=== PATIENT | male | born 1955 | race Two or more races ===

== ENCOUNTER 2018-03-12 12:00 | Inpatient (IN) | payer SELFPAY ==
[~2018-03-12] VITALS: Ht 172.7 cm; Wt 94.5 kg
--- NOTE | 2018-03-12 13:54 | NUR ---
DR. ALVAREZ, ER MD, AT THE BEDSIDE FOR PATIENT EVALUATION. PATIENT RECEIVED AWAKE AND ALERT, AMBULATED FROM THE MAIN TRIAGE TO ROOM OB.
[2018-03-12 14:25] LABS: PLATELET COUNT 305 x10^3mcL (130-400)
--- NOTE | 2018-03-12 14:32 | NUR ---
PORTABEL XRAY AT BEDSIDE
[2018-03-12 14:47] LABS: BILIRUBIN TOTAL 0.2 mg/dL (0.20-1.00); CALCIUM 8.4 mg/dL (8.5-10.1); CARBON DIOXIDE 21.1 mmol/L (21-32); MAGNESIUM 2.2 mg/dL (1.8-2.4); POTASSIUM SERUM 4.3 mmol/L (3.5-5.1); TOTAL PROTEIN, SERUM 7.7 g/dL (6.4-8.2)
--- NOTE | 2018-03-12 14:47 | NUR ---
ZOSYN STARTED BY JET SKINNER. PATIENT HAS BEEN UPDATED REGARDING HIS PLAN OF CARE.
--- NOTE | 2018-03-12 14:49 | NUR ---
CRITICAL LAB- [id number], CR-5.3. DR. ALVAREZ NOTIFIED.
[2018-03-12 14:50] LABS: ALBUMIN 2.2 g/dL (3.4-5.0); CREATININE SERUM 5.3 mg/dL (0.7-1.3)
[2018-03-12 15:06] LABS: ERYTHROCYTE SED RATE 95 mm/hr (0-20)
[2018-03-12 15:09] LABS: BAND NEUTROPHIL 4 % (0-10); METAMYELOCTE 1 % (0-2); MONOCYTE 7 % (0-7); MYELOCYTE 1 % (0-2); SEGMENTED NEUTROPHILS 79 % (37-75)
[2018-03-12 15:11] LABS: PLATELET MORPHOLOGY PLATELETS NORMAL; rbc morphology (normal/abnorm) NORMAL (NORMAL)
[2018-03-12 15:39] LABS: C REACTIVE PROTEIN 24.9 mg/dL (<=0.9)
[2018-03-12 15:43] LABS: PHOSPHOROUS 5.6 mg/dL (2.5-4.9)
[2018-03-12 15:45] LABS: CHOLESTEROL/HDL RATIO 7.8
--- NOTE | 2018-03-12 16:12 | NUR ---
[id number] post 1L of NS
--- NOTE | 2018-03-12 16:48 | NUR ---
ATTEMPTED TO GIVE AN ADMISSION REPORT. PER RIMMA, RN SHE WILL CALL BACK IN 10 MINUTES.
[2018-03-12 17:00] LABS: UA SPECIFIC GRAVITY 1.025 (1.005-1.035); microscopic required? YES; urine erythrocyte TRACE (NEGATIVE)
--- NOTE | 2018-03-12 17:37 | NUR ---
RN REPORT GIVEN TO JET SHANKS FROM [facility]LO[facility]. PATIENT REMAINS CLEAN AND DRY. NS CONTINOUS UPON TRANSPORT AT 135 ML/HR. IV REMAINS INTACT AND PATENT. PATIENT HAS BEEN AWARE AND REMAINS AGREEABLE TO HIS CURRENT PLAN OF CARE.
[2018-03-12 18:20] VITALS: BP 178/94
--- NOTE | 2018-03-12 18:41 | NUR ---
LATE ENTRY: RECEIVED PT FROM ED VIA WHEEL CHAIR. PT AA/OX4. SPEAKS URDU. NO S/S OF ACUTE DISTRESS. DENIES PAIN. COMPLAINT OF LLE SWELLING, +1 PITTING EDEMA NOTED LLE. PT HAS WOUND TO RLE, BLACK, OMAR, NO DRAINAGE, WITH ECCHYMOSIS NOTED TO ANTERIOR FOOT. BLACK WOUND NOTED TO LLE, OMAR, NO DRAINAGE. WITH AMPUTATED DIGIT. SEE CHART FOR PICTURES. PT REPORTS NUMBNESS BLE. NO COMPLAINT OF PAIN. NO SOB ON ROOM AIR. PT CALM/COOPERATIVE. NO CHEST PAIN. MED-SURG. IV WNL TO RH, 20 GAUGE NO REDNESS, NO SWELLING, NO INFILTRATION. PATENT. IV FLUIDS FLOWING. BED IN LOW POSITION. CALL LIGHT WITHIN REACH. WILL ENDORSE TO ONCOMING SHIFT.
--- NOTE | 2018-03-12 20:00 | NUR ---
PATIENT RECEIVED AWAKE/ALERT/ORIENTED X4 IN BED, ONGOING ULTRASOUND. SLOVENIAN SPEAKING. RESPIRATION EVEN AND UNLABORED, ON ROOM AIR. ONGOING 0.9% NS AT 135 CC/HR INFUSING WELL AT THE RIGHT HAND. SWELLING/REDNESS NOTED TO LLE. OPEN WOUND TO RLE/LLE. VOIDING FREELY WITHOUT DIFFICULTY. WILL CONTINUE TO MONITOR.
[2018-03-12 20:40] VITALS: BP 156/79
--- NOTE | 2018-03-12 21:43 | NUR ---
PATIENT COMPLAINED OF PAIN ON THE RIGHT CHEST, VERBALIZED HE FELL AT HOME BEFORE HE CAME IN, PAIN SCALE 9/10. MEDICATED WITH NORCO 7.5/325 MG PO ORDERED. WILL CONTINUE TO MONITOR.
[2018-03-12 23:27] VITALS: BP 178/94
[2018-03-13 05:01] VITALS: BP 155/82
--- NOTE | 2018-03-13 06:27 | NUR ---
PATIENT RESTING IN BED. RESPIRATION EVEN AND UNALBORED. IV SITE NO SIGN OF INFILTRATION. COMPLAINED OF LEFT LOWER PAIN. ASSISTED WITH NEEDS. SAFETY OBSERVED. PLACED BED IN THE LOWEST POSITION. PLACED CALL LIGHT WITHIN REACH AT ALL TIMES.
[2018-03-13 07:02] LABS: BASOPHIL % 0.1 % (0-2); PLATELET COUNT 276 x10^3mcL (130-400); RED CELL DISTRIBUTION WIDTH 14.2 % (11.5-14.5)
[2018-03-13 07:05] LABS: CALCIUM 8.1 mg/dL (8.5-10.1); CARBON DIOXIDE 21.2 mmol/L (21-32); MAGNESIUM 2.1 mg/dL (1.8-2.4); POTASSIUM SERUM 4.9 mmol/L (3.5-5.1)
--- NOTE | 2018-03-13 07:20 | NUR ---
RECEIVED PT FROM NOC JET KIM. PT RESTING IN BED WITH BOTH EYES CLOSED. NO S/S OF ACUTE DISTRESS. NO S/S OF PAIN. NO SOB ON ROOM AIR. NO CHEST PAIN AT THIS TIME. SCDS IN PLACE. IV WNL TO RH, NO REDNESS, NO SWELLING, NO INFILTRATION. PATENT. FALL PREC. IN PLACE. BED IN LOW POSITION. CALL LIGHT WITHIN REACH. WILL CONT TO MONITOR.
[2018-03-13 07:21] LABS: CREATININE SERUM 4.7 mg/dL (0.7-1.3)
[2018-03-13 10:49] VITALS: BP 134/73
--- NOTE | 2018-03-13 14:07 | NUR ---
PT LAYING IN BED WITH LLE ELEVATED. AA/OX4. REPORTS MILD PAIN TO LLE, RATES 3/10. CONTINUOUS. REPORTS TOLERABLE AT THIS TIME. NO S/S OF ACUTE DISTRESS. NO SOB ON ROOM AIR. NO CHEST PAIN. VISITORS AT BEDSIDE. BED IN LOW POSITION. CALL LIGHT WITHIN REACH. WILL CONT. TO MONITOR.
--- NOTE | 2018-03-13 15:39 | NUR ---
PT COMPLAINT OF PAIN TO LLE, RATES 4/10, GIVEN PAIN MED. SEE MAR, DESCRIBES ACHING. AA/OX4. NO S/S OF ACUTE DISTRESS. NO N/V. NO VAN. NO CHEST PAIN. NO SOB ON ROOM AIR. IV WNL TO RH, IV FLUIDS FLOWING. BED IN LOW POSITION. CALL LIGHT WITHIN REACH. LLE ELEVATED WITH PILLOWS. FALL PREC IN PLACE. URINE OUTPUT 750CC. URINE CLEAR/YELLOW. WILL CONT. TO MONITOR.
--- NOTE | 2018-03-13 16:28 | NUR ---
LATE ENTRY: BP ELEVATED 203/109, PRN BP MED GIVEN. PT DENIES N/V. AA/OX4. COMPLAINT OF MILD VAN. RATES 2/10. REPORTS TOLERABLE AT THIS TIME. NO SOB ON ROOM AIR. NO CHEST PAIN. CALM/COOPERATIVE. WILL CONT. TO MONITOR.
[2018-03-13 18:30] VITALS: BP 179/94
--- NOTE | 2018-03-13 18:42 | NUR ---
BP TRENDING DOWN, 179/94, HR 92. DENIES VAN. NO N/V. DENIES PAIN AT THIS TIME. NO SOB ON ROOM AIR. DENIES CHEST PAIN. DRESSING TO LLE CDI S/P I/D AT BEDSIDE WITH DR. CORONA. 24 HOUR URINE COLLECTION STARTED AT 1830. PT EDUCATED AND PROVIDED WITH URINAL AND COLLECTION CONTAINER. PT VERBALIZED UNDERSTANDING. NO FAMILY MEMBER AT BEDSIDE. BED IN LOW POSITION. CALL LIGHT WITHIN REACH. LLE ELEVATED WITH PILLOW. WILL ENDORSE TO ONCOMING SHIFT.
[2018-03-13 20:38] VITALS: BP 167/85
--- NOTE | 2018-03-13 20:43 | NUR ---
RECEIVED PT IN BED AAOX4 TURKS AND [place] SPEAKING ONLY , LUNG SOUNDS CTA , ABD SOFT BS ACTIVE X4, PIV INTACT INFUSING WELL, BILAT LOWER EXTR ELEVATED ON THE PILLOW , LEFT FOOT DRESSING C/D/I , CALL LIGHT WITHIN [PT'S REACH , WILL CON'T TO MONITOR PT CLOSELY .
--- NOTE | 2018-03-13 23:16 | NUR ---
RESULTS OF US RENAL REPORTED TO DR ROWLAND .
--- NOTE | 2018-03-14 00:35 | NUR ---
PT'S IN BED AWAKE ,24HRS URINE COLLECTION IN PROGRESS .
--- NOTE | 2018-03-14 01:32 | NUR ---
PT C/O RIGHT FOOT PAIN NORCO GIVEN.
[2018-03-14 04:30] VITALS: BP 154/83
--- NOTE | 2018-03-14 06:40 | NUR ---
NO CHANGES OF CONDITION NOTED, ALL DUE MEDS GIVEN NO REACTION NOTED, PT;S AWAKE WEN PAIN AT THE MOMENT , DRESSIGN TO LEFT FOOT C/D/I , ON 24HRS URINE COLLECTION , PIV INTACT INFUSING WELL .
[2018-03-14 06:54] LABS: CALCIUM 7.4 mg/dL (8.5-10.1); CARBON DIOXIDE 20.2 mmol/L (21-32); POTASSIUM SERUM 4.7 mmol/L (3.5-5.1)
[2018-03-14 07:05] LABS: BASOPHIL % 0.5 % (0-2); PLATELET COUNT 284 x10^3mcL (130-400); RED CELL DISTRIBUTION WIDTH 13.1 % (11.5-14.5)
--- NOTE | 2018-03-14 07:10 | NUR ---
[facility] PT AA/OX4. NO S/S OF ACUTE DISTRESS. DENIES PAIN AT THIS TIME. NO N/V. NO FEVER. NO VAN. NO SOB ON ROOM AIR. NO CHEST PAIN. MED-SURG. CALM/COOPERATIVE AT THIS TIME. DENIES ABD. PAIN. [address], PT COOPERATING. USES URINAL, OUTPUT 200CC, URINE CLEAR/YELLOW. DRESSING TO LLE CDI, ABLE TO MOVE BLE, CAP REFILLS <3 SEC BUE/BLE. PULSES +2 BUE/BLE. LLE ELEVATED WITH PILLOW. IV WNL TO RH, NO REDNESS, NO SWELLING, NO INFILTRATION. PATENT. PT CALM/COOPERATIVE LAYING IN BED. BED IN LOW POSITION. CALL LIGHT WITHIN REACH. WILL CONT. TO MONITOR.
[2018-03-14 07:17] LABS: MAGNESIUM 1.5 mg/dL (1.8-2.4); PHOSPHOROUS 4.4 mg/dL (2.5-4.9)
[2018-03-14 12:35] VITALS: BP 160/84
--- NOTE | 2018-03-14 12:58 | NUR ---
BP ELEVATED, PRN BP MED GIVEN. DENIES VAN. NO N/V. NO CHEST PAIN. AA/OX4. NO S/S OF ACUTE DISTRESS. NO SOB ON ROOM AIR. IV WNL, IV FLUIDS FLOWING. DRESSING TO LLE CDI, LLE ELEVATED. 24 HOUR URINE COLLECTION IN PROCESS. PT COMPLIANT. BED IN LOW POSITION. CALL LIGHT WITHIN REACH. URINAL AT BEDSIDE. WILL CONT. TO MONITOR.
[2018-03-14 17:09] VITALS: BP 184/94
--- NOTE | 2018-03-14 17:46 | NUR ---
BP ELEVATED, DR. IBRAHIM AWARE. PT GIVEN MEDICATION FOR BP. DENIES VAN. NO N/V. NO SOB ON ROOM AIR. NO CHEST PAIN. CALM/COOPERATIVE. LAYING IN BED WITH HOB ELEVATED. WILL RECHECK BP. AA/OX4. WILL MONITOR CLOSELY. BED IN LOW POSITION. CALL LIGHT WITHIN REACH.
--- NOTE | 2018-03-14 18:30 | NUR ---
24 HOUR URINE COLLECTION SPECIMEN SENT TO LAB.
[2018-03-14 18:46] VITALS: BP 156/77
--- NOTE | 2018-03-14 18:46 | NUR ---
BP TRENDING DOWN, 156/77 (90), HR 87, PT FOUND RESTING IN BED WITH BOTH EYES CLOSED. NO S/S OF ACUTE DISTRESS. NO SOB ON ROOM AIR. NO CHEST PAIN. DRESSING TO LLE CDI. IV WNL, NO REDNESS, NO SWELLING, NO INFILTRATION. PATENT. NO N/V. NO VAN. NO DIZZINESS. PT HAD ONE BM TODAY, BROWN/FORMED. BED IN LOW POSITION. CALL LIGHT WITHIN REACH. WILL ENDORSE TO ONCOMING SHIFT.
[2018-03-14 19:42] LABS: CREATININE UR 51.5 mg/dL
--- NOTE | 2018-03-14 20:00 | NUR ---
RECEIVED PT IN BED, RESTING QUIETLY. A/O X4. ABLE TO VERBALIZE NEEDS. RESP. EVEN AND UNLABORED. LUNG SOUNDS CLEAR BILAT. ON ROOM AIR, NO ACUTE DISTRESS NOTED. AFEBRILE AND VITAL SIGNS STABLE. NO TELE. DENIES CHEST PAIN OR ANY DISCOMFORT AT THIS TIME. DRESSING TO LLE, DRY AND INTACT. VOIDING FREELY. IVF, NS AT 135ML/HR, INTACT AND INFUSING VIA RH, SITE CLEAR. CALL LIGHT WITHIN REACH. WILL CONTINUE TO MONITOR.
[2018-03-14 20:35] LABS: CREATININE UR 51.5 mg/dL
[2018-03-14 20:44] VITALS: BP 149/84
--- NOTE | 2018-03-14 21:59 | NUR ---
DUE MEDS GIVEN ORDERED, KIMO. WELL. WILL CONTINUE TO MONITOR.
--- NOTE | 2018-03-15 01:34 | NUR ---
EYES CLOSED, APPEARS ASLEEP, EASILY AROUSABLE. RESP. EVEN AND UNLABORED. NO ACUTE DISTRESS NOTED. CALL LIGHT WITHIN REACH. WILL CONTINUE TO MONITOR.
--- NOTE | 2018-03-15 06:19 | NUR ---
NO COMPLAINTS NOTED AT THIS TIME. RESP. EVEN AND UNLABORED. NO ACUTE DISTRESS NOTED. AFEBRILE. B/P SHOWS 176/92, HYDRALAZINE PO GIVEN ORDERED. IVF INTACT AND INFUSING WELL. KEPT COMFORTABLE. WILL ENDORSE TO INCOMING NURSE.
[2018-03-15 06:36] VITALS: BP 176/92
[2018-03-15 07:15] LABS: PLATELET COUNT 271 x10^3mcL (130-400)
[2018-03-15 07:17] LABS: BASOPHIL % 0 % (0-2)
--- NOTE | 2018-03-15 07:30 | NUR ---
RECEIVED PT IN BED A/A/OX4 DENIES VAN. RESP EVEN AND UNLABORED WITH CLEAR BS BILAT. DENIES ANY SOB/CP/PRESSURE. NOTED WITH EDEMA TO LT FOOT +1. S/P I+D POD2 WITH DRSG IN PLACE, MOD DRY DRAINAGE TO BOTTOM OF FOOT. DRSG CHANGES BY PODIATRY ONLY. GARCIA FOOT WITH DRY WOUND WITH BLACK COLOR TO FLACKY TISSUE TO PLANTAR ASPECT OF GREAT TOE, OMAR. PT DENIES ANY PAIN/DISCOMFORT AT THIS TIME. CALL LIGHT IN REACH NEEDS ATTENDED TO.
[2018-03-15 07:50] VITALS: BP 153/77
[2018-03-15 08:34] VITALS: BP 153/77
[2018-03-15 08:35] LABS: CALCIUM 7.9 mg/dL (8.5-10.1); CARBON DIOXIDE 18.5 mmol/L (21-32); CREATININE SERUM 3.7 mg/dL (0.7-1.3); PHOSPHOROUS 4.2 mg/dL (2.5-4.9); POTASSIUM SERUM 4.7 mmol/L (3.5-5.1)
[2018-03-15 08:40] LABS: MAGNESIUM 1.6 mg/dL (1.8-2.4)
--- NOTE | 2018-03-15 08:44 | NUR ---
PT C/O PAIN TO LT FOOT AT 5/10, MEDICATED WITH NORCO PO ORDERED.
[2018-03-15] MEDS ORDERED: LEVAQUIN250 M1 PO (10:03)
[2018-03-15] MEDS ORDERED: CLINDAMYCIN HC300 MG PO (10:13)
--- NOTE | 2018-03-15 10:59 | NUR ---
DR. MCKINNEY PAGED AND RETURN CALL. INQUIRED ABOUT DRSG CHANGE TO PT PRIOR TO D/C. MADE AWARE LAST ORDER WAS FOR DRSG TO BE DONE BY PODIATRY ONLY. DR. MCKINNEY STATED THAT HE SPOKE WITH PODIATRY AND ORDERS ARE FOR PT NOT TO HAVE DRSG CHANGE UNTIL SEEN BY PHYSICIAN WHO HAS BEEN SEING HIM AT HOME. PER HE WAS INSTRUCTED TO GO BACK TO [facility] AND SEEK MEDICAL HELP WITH HIS PODIATRY UPON ARRIVAL.
--- NOTE | 2018-03-15 11:00 | NUR ---
DR. MCKINNEY CALL MADE AWARE PT HAD PLANE TICKET AT 1500 FROM [facility] TO [place] AND PT PLANNING TO GO STRAIGHT TO HOSPITAL UPON ARRIVAL TO [place]. INQUIRED ABOUT CRUTCHES FOR PT MADE AWARE POSTOP SHOES GIVEN TO PT. PER PT HAS DOES NOT REQUIRE TRAINING HAS USED THEM BEFORE WHEN HE HAD TOE AMPUTAION. PER MD WILL ORDER. MATERIALS CALLED AND PUT IN REQUEST.
--- NOTE | 2018-03-15 11:50 | NUR ---
PT PROVIDED WITH D/C HOME INSTRUCTIONS. PT GIVEN MEDICATION EDUCATION INSTRUCTED TO START ATB TODAY AND COMPLETE TX ORDERED. PT GIVEN CRUTCHES ORDERED BY DR. MCKINNEY. PT HAD PRIOR EXPERIENCES WITH CRUTCHES AND WAS ABLE TO AMBULATED AND PROVIDED DEMONSTRATION AFTER A SHORT REVIEW ON SAFETY INSTRUCTIONS AND AMBULATION DEMONSTRATION. PT INSTRUCTED TO GO TO ER [place] AR[place]AL [place] TO BE EVALUATED BY OWN PUTTY MIXER AND APPLIER INSTRUCTED BY DR MCKINNEY. PT PLANNED ON DOING THAT ON ARRIVAL. PT VERBALIZED UNDERSTANDING OF INSTRUCTIONS. IV D/C'D AT THIS TIME CATHETER INTACT. PT PROVIDED WITH POST OP SHOE FOR LT FOOT. TRANSPORTED TO [facility] WITH ALL PERSONAL BELONGINGS IN HAND FREE OF ANY APPARENT DISTRESSED.
--- NOTE | 2018-03-16 08:10 | NUR ---
WOUND CONSULT NOT DONE, PT. SEEN BY DR. CORONA ON 03/13/2018.
[2018-03-17 21:13] LABS: albumin % urine (ife24hr) 47.4 % (.); alpha-1-globulin % ur(ife24hr) 7.5 % (.); alpha-2-globulin % ur(ife24hr) 8.5 % (.); beta globulin % urine(ife24hr) 12.8 % (.); gamma globulin urine (ife24hr) 23.8 % (.); total protein urine (pep) 218.3 mg/dL (Not Estab.)
== END 2018-03-15 11:50 | disposition home or self-care (01) | DRG 853 ==
LOC: ED 12:00 → MU 15:03
PROVIDERS: Emergency Medicine; Internal Medicine; ADMIT Internal Medicine
PROC: 0JDR0ZZ Extraction of Left Foot Subcutaneous Tissue and Fascia, Open Approach (ICD-10-PCS; principal; 2018-03-13)
DX: A41.9 Sepsis, unspecified organism (principal); E43 Unspecified severe protein-calorie malnutrition; N17.0 Acute kidney failure with tubular necrosis; E87.1 Hypo-osmolality and hyponatremia; L02.612 Cutaneous abscess of left foot; L03.116 Cellulitis of left lower limb; N18.5 Chronic kidney disease, stage 5; I12.0 Hypertensive chronic kidney disease with stage 5 chronic kidney disease or end stage renal disease; E11.52 Type 2 diabetes mellitus with diabetic peripheral angiopathy with gangrene; I96 Gangrene, not elsewhere classified; E11.40 Type 2 diabetes mellitus with diabetic neuropathy, unspecified; E11.621 Type 2 diabetes mellitus with foot ulcer; L97.529 Non-pressure chronic ulcer of other part of left foot with unspecified severity; D63.8 Anemia in other chronic diseases classified elsewhere; E11.21 Type 2 diabetes mellitus with diabetic nephropathy; E11.65 Type 2 diabetes mellitus with hyperglycemia; E11.22 Type 2 diabetes mellitus with diabetic chronic kidney disease; E83.39 Other disorders of phosphorus metabolism; Z89.412 Acquired absence of left great toe; Z82.49 Family history of ischemic heart disease and other diseases of the circulatory system; Z83.3 Family history of diabetes mellitus; Z68.31 Body mass index [BMI] 31.0-31.9, adult; Z23 Encounter for immunization
CPT/HCPCS: 82962; 84156; 84166; 86335; 90658; J1815; J2543; J3370; J7030; J7050; Q0092